=== PATIENT | male | born 2000 | race Caucasian/White ===

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

== ENCOUNTER 2020-02-12 17:27 | Emergency (ER) | payer SELFPAY ==
--- OUTSIDE RECORDS SUMMARY | 2020-02-12 17:29 | XMS REPORT ---
:2000 Author Organization [facility] Address [address] [place] [address] Dr. Bradford [address] [place] [id number] Care Team Providers Name Role Phone Unavailable Unavailable Unavailable Problems This patient has no known problems. Allergies, Adverse Reactions, Alerts This patient has no known allergies or adverse reactions. Medications This patient has no known medications.
--- NOTE | 2020-02-12 17:47 | EDPHYS ---
Physician Documentation [facility] Name: Jeronimo Dotson Age: 19 yrs Sex: Male : 2000 Arrival Date: 02/12/2020 Time: 17:30 Bed 24 Private MD: ED Physician Ashwin Calhoun HPI: 02/11 17:48 This 19 yrs old Male presents to ER via Ambulatory with complaints of kb Congestion. 17:48 The patient or guardian reports nasal congestion. Onset: The symptoms/episode kb began/occurred 2 day(s) ago. Severity of symptoms: At their worst the symptoms were very mild, in the emergency department the symptoms are unchanged. Modifying factors: The symptoms are alleviated by nothing, the symptoms are aggravated by nothing. Associated signs and symptoms: Pertinent positives: rhinorrhea, Pertinent negatives: chest pain, diarrhea, ear ache, fever, nausea, sore throat, vomiting. The patient has not experienced similar symptoms in the past. The patient has not recently seen a physician. Pt states he had a sore throat on Wednesday that caused him to cough, Wednesday developed runny nose. Today has had nasal congestion. Denies fever. States "I think it's just my allergies.". Historical: - Allergies: 17:36 No Known Allergies; aa5 - PMHx: 17:36 None; aa5 - PSHx: 17:36 surgery to right side of neck; aa5 - Immunization history:: Flu vaccine is not up to date. - Social history:: Smoking status: Patient denies any tobacco usage or history of. ROS: 17:47 Constitutional: Negative for fever, chills, and weight loss, Neck: Negative for injury, kb pain, and swelling, Cardiovascular: Negative for chest pain, palpitations, and edema, Respiratory: Negative for shortness of breath, cough, wheezing, and pleuritic chest pain, Abdomen/GI: Negative for abdominal pain, nausea, vomiting, diarrhea, and constipation, MS/Extremity: Negative for injury and deformity, Skin: Negative for injury, rash, and discoloration, Neuro: Negative for headache, weakness, numbness, tingling, and seizure. 17:47 ENT: Positive for sinus congestion. Exam: 17:47 Constitutional: This is a well developed, well nourished patient who is awake, alert, kb and in no acute distress. Head/Face: Normocephalic, atraumatic. ENT: Nares patent. No nasal discharge, no septal abnormalities noted. Tympanic membranes are normal and external auditory canals are clear. Oropharynx with no redness, swelling, or masses, exudates, or evidence of obstruction, uvula midline. Mucous membranes moist. Neck: Trachea midline, no thyromegaly or masses palpated, and no cervical lymphadenopathy. Supple, full range of motion without nuchal rigidity, or vertebral point tenderness. No Meningismus. Chest/axilla: Normal chest wall appearance and motion. Nontender with no deformity. No lesions are appreciated. Cardiovascular: Regular rate and rhythm with a normal S1 and S2. No gallops, murmurs, or rubs. Normal PMI, no JVD. No pulse deficits. Respiratory: Lungs have equal breath sounds bilaterally, clear to auscultation and percussion. No rales, rhonchi or wheezes noted. No increased work of breathing, no retractions or nasal flaring. Abdomen/GI: Soft, non-tender, with normal bowel sounds. No distension or tympany. No guarding or rebound. No evidence of tenderness throughout. Skin: Warm, dry with normal turgor. Normal color with no rashes, no lesions, and no evidence of cellulitis. MS/ Extremity: Pulses equal, no cyanosis. Neurovascular intact. Full, normal range of motion. Neuro: Awake and alert, GCS 15, oriented to person, place, time, and situation. Cranial nerves II-XII grossly intact. Motor strength 5/5 in all extremities. Sensory grossly intact. Cerebellar exam normal. Normal gait. Vital Signs: 17:37 BP 134 / 71; Pulse 105; Resp 18 S; Temp 98.9(O); Pulse Ox 99% on R/A; Weight 115.67 kg aa5 (R); Height 6 ft. 2 in. (187.96 cm) (R); 17:37 Body Mass Index 32.74 (115.67 kg, 187.96 cm) aa5 MDM: 17:39 Patient medically screened. [facility] 17:46 Data reviewed: vital signs, nurses notes. Data interpreted: Pulse oximetry: on room air kb is 99 %. Interpretation: normal. Counseling: I had a detailed discussion with the patient and/or guardian regarding: the historical points, exam findings, and any diagnostic results supporting the discharge/admit diagnosis, the need for outpatient follow up, a family practitioner, to return to the emergency department if symptoms worsen or persist or if there are any questions or concerns that arise at home. Administered Medications: No medications were administered Disposition: 02/12 07:41 Co-signature as Attending Physician, Ashwin Calhoun MD I agree with the assessment and mary plan of care. Disposition: 02/12/20 17:46 Discharged to Home. Impression: Nasal congestion. - Condition is Stable. - Discharge Instructions: Nasal Allergies, Apcf-ck-Csip. - Work release form, Medication Reconciliation Form, Thank You Letter, Antibiotic Education, Prescription Opioid Use form. - Follow up: Emergency Department; When: As needed; Reason: Worsening of condition. Follow up: Private Physician; When: 2 - 3 days; Reason: Recheck today's complaints, Continuance of care, Re-evaluation by your physician. - Notes: Take an antihistamine with decongestant (Claritin D, Zyrtec D, orAllegra D)as directed for symptoms. Signatures: Kaitlin Torres, FABRIC WORKER FITTER-C FABRIC WORKER FITTER-Ashwin Cleaning MD MD cha Calderon, Audri, RN RN aa5 Isidro Garcia RN RN ll1 Corrections: (The following items were deleted from the chart) 02/11 18:01 17:46 02/12/2020 17:46 Discharged to Home. Impression: Nasal congestion. Condition is ll1 Stable. Forms are Medication Reconciliation Form, Thank You Letter, Antibiotic Education, Prescription Opioid Use. Follow up: Emergency Department; When: As needed; Reason: Worsening of condition. Follow up: Private Physician; When: 2 - 3 days; Reason: Recheck today's complaints, Continuance of care, Re-evaluation by your physician. kb
--- NOTE | 2020-02-12 17:47 | ER ---
Nurse's Notes [facility] Name: Jeronimo Dotson Age: 19 yrs Sex: Male : 2000 Arrival Date: 02/12/2020 Time: 17:30 Bed 24 Private MD: Diagnosis: Nasal congestion Presentation: 02/11 17:35 Chief complaint: Patient states: "on Wednesday I started with a sore throat and aa5 congestion". Pt currently denies sore throat, denies cough. Reports nasal congestion. Coronavirus screen: Patient denies a cough. Patient denies shortness of breath or difficulty breathing. Patient denies measured and/or subjective temperature greater than 100.4F prior to today's visit. Patient denies travel on a cruise ship or to a country the [facility] currently lists as an affected area. Patient denies contact with known and/or suspected case of COVID-19. Ebola Screen: Patient negative for fever greater than or equal to 101.5 degrees Fahrenheit, and additional compatible Ebola Virus Disease symptoms. Initial Sepsis Screen: Does the patient meet any 2 criteria? No. Patient's initial sepsis screen is negative. Does the patient have a suspected source of infection? No. Patient's initial sepsis screen is negative. Risk Assessment: Do you want to hurt yourself or someone else? Patient reports no desire to harm self or others. Onset of symptoms was February 2020. 17:35 Method Of Arrival: Ambulatory aa5 17:35 Acuity: OLEKSANDR 4 aa5 Triage Assessment: 17:59 Respiratory: Breath sounds are clear bilaterally. ll1 Historical: - Allergies: 17:36 No Known Allergies; aa5 - PMHx: 17:36 None; aa5 - PSHx: 17:36 surgery to right side of neck; aa5 - Immunization history:: Flu vaccine is not up to date. - Social history:: Smoking status: Patient denies any tobacco usage or history of. Screenin:59 Abuse screen: Denies threats or abuse. Nutritional screening: No deficits noted. ll1 Tuberculosis screening: No symptoms or risk factors identified. Fall Risk None identified. Total Long Fall Scale indicates No Risk (0-24 pts). Assessment: 17:58 General: Appears in no apparent distress. Behavior is calm, cooperative. Pain: Denies ll1 pain. Neuro: No deficits noted. Cardiovascular: No deficits noted. Respiratory: No deficits noted. GI: No deficits noted. EENT: Reports nasal congestion. 17:59 Cardiovascular: Heart tones S1 S2 Capillary refill < 3 seconds Clubbing of nail beds is ll1 absent JVD is absent Patient's skin is warm and dry. Respiratory: Airway is patent Trachea midline Respiratory effort is even, unlabored, Respiratory pattern is regular, symmetrical, Breath sounds are clear bilaterally. Vital Signs: 17:37 BP 134 / 71; Pulse 105; Resp 18 S; Temp 98.9(O); Pulse Ox 99% on R/A; Weight 115.67 kg aa5 (R); Height 6 ft. 2 in. (187.96 cm) (R); 17:37 Body Mass Index 32.74 (115.67 kg, 187.96 cm) aa5 ED Course: 17:30 Patient arrived in ED. mr 17:30 [facility]aitlin Torres [facility]C [facility] kb 17:30 Ashwin Calhoun MD is Attending Physician. kb 17:36 Triage completed. aa5 17:36 Arm band placed on. aa5 17:53 Isidro Garcia, RN is Primary Nurse. ll1 17:58 No provider procedures requiring assistance completed. Patient did not have IV access ll1 during this emergency room visit. 18:00 Patient has correct armband on for positive identification. Bed in low position. Call ll1 light in reach. Side rails up X 1. Administered Medications: No medications were administered Outcome: 17:46 Discharge ordered by . kb 18:00 Discharged to home ambulatory. ll1 18:00 Condition: stable 18:00 Discharge instructions given to patient, Instructed on discharge instructions, follow up and referral plans. Demonstrated understanding of instructions, follow-up care. 18:01 Patient left the ED. ll1 Signatures: Kaitlin Torres FNP-C FNP-Ckb Trupti LrDian RN RN aa5 Isidro Garcia, EDSON RN ll1
[2020-02-12 18:28] VITALS: BP 134/71; TEMP 98.9; O2SAT 99
== END 2020-02-12 18:01 | disposition home or self-care (01) ==
LOC: ER 17:27
DX: R09.81 Nasal congestion (principal)
CPT/HCPCS: 99281

== ENCOUNTER 2022-09-28 15:32 | Emergency (ER) | payer SELFPAY ==
--- OUTSIDE RECORDS SUMMARY | 2022-09-28 16:39 | XMS REPORT | Continuity of Care Document ---
:2000 Author Organization [facility] t Address [address] [place] [address] [address]. [address] [place] [address] Care Team Providers Name Role Phone MARY WONG Attending Clinician Unavailable Problems This patient has no known problems. Allergies, Adverse Reactions, Alerts Allergy Allergy Status Severity Reaction(s) Onset Inactive Treating Comm ents Source Name Type Date Date Clinician NO KNOWN Drug Active [facility] ALLERGIE [facility] Medications This patient has no known medications. Procedures This patient has no known procedures. Encounters Start End Encounter Admission Attending Care Care Encounter Source Date/Time Date/Time Type Type Clinicians Facility Department ID 2019-11-12 2019-11-12 Emergency X CELINA WONG ERT [id number] [facility] 06:36:27 07:31:00 MARY [facility] Results This patient has no known results.
[2022-09-28 17:24] LABS: SARS-COV-2 RT PCR NEGATIVE (NEGATIVE)
[2022-09-28] MEDS ORDERED: PROMETHAZINE 25 MG TABLET ONE (17:58)
[2022-09-28] MEDS ORDERED: KETOROLAC 30 MG/ML INJ ONE (17:58)
--- NOTE | 2022-09-28 18:32 | ER ---
Nurse's Notes [facility] Name: Jeronimo Dotson Age: 21 yrs Sex: Male : 2000 Arrival Date: 09/28/2022 Time: 15:34 Bed DIS5 Private MD: Diagnosis: Viral infection, unspecified Presentation: 09/28 16:11 Chief complaint: Patient states: was exposed to flu on Wednesday and yesterday I felt iw like i was gonna throw up and today I have a Headache. Coronavirus screen: Client presents with at least one sign or symptom that may indicate coronavirus-19. Ebola Screen: Patient negative for fever greater than or equal to 101.5 degrees Fahrenheit, and additional compatible Ebola Virus Disease symptoms Patient denies exposure to infectious person. Patient denies travel to an Ebola-affected area in the 21 days before illness onset. No symptoms or risks identified at this time. Onset of symptoms was September 27, 2022. 16:11 Method Of Arrival: Ambulatory iw 16:11 Acuity: OLEKSANDR 4 iw Triage Assessment: 16:19 General: Appears in no apparent distress. Behavior is calm, cooperative, appropriate iw for age. Pain: Denies pain. Historical: - Allergies: 16:12 No Known Allergies; iw - Home Meds: 16:12 None [Active]; iw - PMHx: 16:12 None; iw - Immunization history:: Client reports having NOT received the Covid vaccine. - Social history:: Smoking status: Patient denies any tobacco usage or history of. Vital Signs: 16:42 BP 116 / 98; Pulse 89; Resp 18; Temp 98.3; Pulse Ox 97% on R/A; iw 18:07 BP 120 / 71; Pulse 79; Resp 16; Temp 97.9; Pulse Ox 100% on R/A; iw ED Course: 15:34 Patient arrived in ED. as 15:35 [facility] snw 15:35 Wai Butts MD is Attending Physician. snw 16:12 Triage completed. iw 16:12 Arm band placed on. iw 17:54 Candelaria Macario, RN is Primary Nurse. iw Administered Medications: 18:02 Drug: Ketorolac 30 mg Route: IM; Site: left deltoid; iw 18:02 Drug: Promethazine 25 mg Route: PO; iw Outcome: 18:32 Discharge ordered by MD. camarena 18:42 Patient left the ED. jh5 Signatures: Ena Garcia, [employer] ARC-Carmen Cormier Irene, RN ESDON Mayda Saenz RN RN 5 Corrections: (The following items were deleted from the chart) 16:43 16:42 BP 141 / 98; Pulse 89bpm; Resp 18bpm; Pulse Ox 97% RA; Temp 98.3F; iw iw 18:15 18:07 Pulse 79bpm; Resp 16bpm; Pulse Ox 100% RA; Temp 97.9F; iw iw
--- NOTE | 2022-09-28 18:32 | EDPHYS ---
Physician Documentation [facility] Name: Jeronimo Dotson Age: 21 yrs Sex: Male : 2000 Arrival Date: 09/28/2022 Time: 15:34 Bed DIS5 Private MD: ED Physician Wai Butts HPI: 09/28 16:41 This 21 yrs old Male presents to ER via Ambulatory with complaints of nausea, headache. snw 16:41 The patient complains of pain to the top of head and forehead. The patient describes snw the headache as pounding. Onset: The symptoms/episode began/occurred acutely. Associated signs and symptoms: Pertinent positives: nausea. Severity of symptoms: At its worst the pain was moderate, in the emergency department the pain is unchanged. Headache History: Denies prior headaches. The patient has not experienced similar symptoms in the past. The patient has not recently seen a physician. Historical: - Allergies: 16:12 No Known Allergies; iw - Home Meds: 16:12 None [Active]; iw - PMHx: 16:12 None; iw - Immunization history:: Client reports having NOT received the Covid vaccine. - Social history:: Smoking status: Patient denies any tobacco usage or history of. ROS: 16:42 Eyes: Negative for injury, pain, redness, and discharge, ENT: Negative for injury, snw pain, and discharge, Neck: Negative for injury, pain, and swelling, Cardiovascular: Negative for chest pain, palpitations, and edema, Respiratory: Negative for shortness of breath, cough, wheezing, and pleuritic chest pain. 16:42 Back: Negative for injury and pain, : Negative for injury, bleeding, discharge, and swelling, MS/Extremity: Negative for injury and deformity, Skin: Negative for injury, rash, and discoloration. 16:42 Constitutional: Positive for body aches. 16:42 Abdomen/GI: Positive for nausea. 16:42 Neuro: Positive for headache. Exam: 16:42 Head/Face: Normocephalic, atraumatic. Eyes: Pupils equal round and reactive to light, snw extra-ocular motions intact. Lids and lashes normal. Conjunctiva and sclera are non-icteric and not injected. Cornea within normal limits. Periorbital areas with no swelling, redness, or edema. ENT: Nares patent. No nasal discharge, no septal abnormalities noted. Tympanic membranes are normal and external auditory canals are clear. Oropharynx with mild redness, no swelling, or masses, exudates, or evidence of obstruction, uvula midline. Mucous membranes moist. Neck: Trachea midline, no thyromegaly or masses palpated, and no cervical lymphadenopathy. Supple, full range of motion without nuchal rigidity, or vertebral point tenderness. No Meningismus. Chest/axilla: Normal chest wall appearance and motion. Nontender with no deformity. No lesions are appreciated. Cardiovascular: Regular rate and rhythm with a normal S1 and S2. No gallops, murmurs, or rubs. Normal PMI, no JVD. No pulse deficits. Respiratory: Lungs have equal breath sounds bilaterally, clear to auscultation and percussion. No rales, rhonchi or wheezes noted. No increased work of breathing, no retractions or nasal flaring. Abdomen/GI: Soft, non-tender, with normal bowel sounds. No distension or tympany. No guarding or rebound. No evidence of tenderness throughout. Back: No spinal tenderness. No costovertebral tenderness. Full range of motion. Skin: Warm, dry with normal turgor. Normal color with no rashes, no lesions, and no evidence of cellulitis. MS/ Extremity: Pulses equal, no cyanosis. Neurovascular intact. Full, normal range of motion. Neuro: Awake and alert, GCS 15, oriented to person, place, time, and situation. Cranial nerves II-XII grossly intact. Motor strength 5/5 in all extremities. Sensory grossly intact. Cerebellar exam normal. Normal gait. Psych: Awake, alert, with orientation to person, place and time. Behavior, mood, and affect are within normal limits. 16:42 Constitutional: The patient appears alert, awake, uncomfortable. Vital Signs: 16:42 BP 116 / 98; Pulse 89; Resp 18; Temp 98.3; Pulse Ox 97% on R/A; iw 18:07 BP 120 / 71; Pulse 79; Resp 16; Temp 97.9; Pulse Ox 100% on R/A; iw MDM: 16:35 Patient medically screened. snw 18:32 Data reviewed: vital signs, nurses notes. Data interpreted: Pulse oximetry: on room air snw is 100 %. Interpretation: normal. Counseling: I had a detailed discussion with the patient and/or guardian regarding: the historical points, exam findings, and any diagnostic results supporting the discharge/admit diagnosis, lab results, the need for outpatient follow up, to return to the emergency department if symptoms worsen or persist or if there are any questions or concerns that arise at home. Special discussion: Based on the history and exam findings, there is no indication for further emergent testing or inpatient evaluation. I discussed with the patient/guardian the need to see the primary care provider for further evaluation of the symptoms. 09/28 16:20 Order name: Strep; Complete Time: 17:03 snw 09/28 16:20 Order name: COVID-19/FLU A+B/RSV; Complete Time: 17:27 snw 09/28 17:05 Order name: Throat Culture EDMS 09/28 17:32 Order name: Recheck VS; Complete Time: 18:15 snw Administered Medications: 18:02 Drug: Ketorolac 30 mg Route: IM; Site: left deltoid; iw 18:02 Drug: Promethazine 25 mg Route: PO; iw Disposition: 16:43 Co-signature as Attending Physician, Wai Butts MD I agree with the assessment and rt plan of care. Disposition Summary: 09/28/22 18:32 Discharge Ordered Location: Home snw Condition: Stable snw Diagnosis - Viral infection, unspecified snw Followup: snw - With: Emergency Department - When: As needed - Reason: Worsening of condition Followup: snw - With: Private Physician - When: 2 - 3 days - Reason: Recheck today's complaints, Continuance of care, Re-evaluation by your physician Discharge Instructions: - Discharge Summary Sheet snw - Fever, Adult snw - Muscle Pain, Adult snw - Viral Respiratory Infection snw - Rehydration, Adult snw Forms: - Medication Reconciliation Form snw - Thank You Letter snw - Antibiotic Education snw - Prescription Opioid Use snw - Work release form snw Prescriptions: - orphenadrine citrate 100 mg Oral Tablet Sustained Release - take 1 tablet by ORAL route 2 times per day As needed; 20 tablet; Refills: 0, snw Product Selection Permitted - promethazine 25 mg Oral Tablet - take 1 tablet by ORAL route every 6 hours As needed; 20 tablet; Refills: 0, snw Product Selection Permitted Signatures: Dispatcher [employer] EDMS Ena Garcia, COUNTER WAITER-C COUNTER WAITER-Csnw Candelaria Macario, RN RN iw Wai Butts MD MD rt
[2022-09-28 19:15] VITALS: BP 120/71; TEMP 97.9; O2SAT 100
== END 2022-09-28 18:42 | disposition home or self-care (01) ==
LOC: ER 15:32
DX: B34.9 Viral infection, unspecified (principal); Z20.822 Contact with and (suspected) exposure to COVID-19
CPT/HCPCS: 0241U; 87070; 87081; 96372; 99283; Q0169

== ENCOUNTER 2024-08-08 08:57 | Emergency (ER) | payer SELFPAY ==
--- OUTSIDE RECORDS SUMMARY | 2024-08-08 09:00 | XMS REPORT | Continuity of Care Document ---
Author Name Unknown Address [address] [place] [address] [facility] thconnect Address [address] [place] [address] Care Team Providers Care Casing Cooker Name Role Phone Pcp, Patient Does Not Have A Primary Care Physic jason OSMANY ANTUNEZ Attending Clinician Unavailable Osmany Antunez MD Attending Clinician MARY WONG Attending Clinician Unavailab le Allergies, Adverse Reactions, Alerts Allergy Name Allergy Type Status Severity Reaction(s) Onset Date Inactive Date Treating Clinician Comments Source NO KNOWN ALLERGIE S Drug Class Active [facility] Social History Social Habit Start Date Stop Date Quantity Comments Source Sexual orientation U [facility] Sex Assigned At 2000 00:00:00 2000 00:00:00 [facility] Smoking Status Start Date Stop Date Source Tobacco smoking consumption unknown [facility] Medications Ordered Medication Name Filled Medication Name Start Date Stop Date Current Medication? Ordering Clinician Indication Dosage Frequency Signature (SIG) Comments Components Source sod chlor-bicar b-squeez bottle (NEILMED SINUS RINSE COMPLETE) pkdv 2018-11 00:00: 00 Yes [id number] 1{bottl e} Use 1 Bottle in each nostril 2 (two) times daily. Use in hot shower [address] [facility] promethazin e-codeine 6.25-10 mg/5 mL syrup 2018-11 00:00: 00 Yes [id number] 5mL Take 5 mL by mouth 4 (four) times daily as needed for Cough. [facility] Vital Signs Vital Name Observation Time Observation Value Comments Annabelle aden Systolic blood pressure 2023-09-17 13:39:00 147 mm[Hg] [facility] Diastolic blood pressure 2023-09-17 13:39:00 88 mm[Hg] [facility] Heart rate 2023-09-17 13:39:00 84 [facility] temperature 2023-09-17 13:39:[address] [facility] Respiratory rate 2023-09-17 13:39:00 14 /min [facility] Body height 2023-09-17 13:39:00 190.5 cm [facility] Body weight 2023-09-17 13:39:00 133.811 kg [facility] BMI 2023-09-17 13:39:00 36.87 kg/m2 [facility] Oxygen saturation in Arterial blood by Pulse oximetry 2023-09-17 13:39:00 100 /min [facility] Procedures Procedure Date / Time Performed Performing Clinicia n Source CONSENT/REFUSAL FOR DIAGNOSIS AND TREATMENT 2023-09-17 13:36:27 Doctor Unassigned, [facility] [place] [facility] Encounters Start Date/Time End Date/Time Encounter Type Admission Type Attending Clinicians Care Facility Care Department Encounter ID Source 2023-09-17 07:41:00 2023-09-17 08:27:00 Emergency X OSMANY ANTUNEZ [facility] [place] [id number] [facility] 2023-09-17 07:41:00 2023-09-17 08:27:00 Emergency Osmany Antunez [facility] [id number] [facility] 2019-11-12 06:36:27 2019-11-12 07:31:00 Emergency X MARY WONG [facility] [id number] [facility]
[2024-08-08 10:08] LABS: SARS-CoV-2 Antigen CONTROL BLUE LINE VIS/BG OK; SARS-CoV-2 Antigen Rapid Res Negative (Negative)
--- NOTE | 2024-08-08 12:57 | ER ---
Nurse's Notes [facility] Name: Jeronimo Dotson Age: 23 yrs Sex: Male : 2000 Arrival Date: 08/08/2024 Time: 08:57 Bed 11 Private MD: Diagnosis: Acute upper respiratory infection, unspecified;Cough Presentation: 08/08 09:19 Chief complaint: Patient states: nasal congestion, cough, body aches x 2 days. jl7 Coronavirus screen: Client presents with at least one sign or symptom that may indicate coronavirus-19. Ebola Screen: No symptoms or risks identified at this time. Initial Sepsis Screen: Does the patient meet any 2 criteria? No. Patient's initial sepsis screen is negative. Does the patient have a suspected source of infection? No. Patient's initial sepsis screen is negative. Risk Assessment: Do you want to hurt yourself or someone else? Patient reports no desire to harm self or others. Onset of symptoms was August 07, 2024. 09:19 Method Of Arrival: Ambulatory [facility] 09:19 Acuity: OLEKSANDR 4 jl7 Triage Assessment: 09:20 General: Appears in no apparent distress. uncomfortable, Behavior is calm, cooperative, jl7 appropriate for age. Pain: Complains of pain in headache Pain currently is 4 out of 10 on a pain scale. EENT: Throat is clear. Neuro: No deficits noted. Historical: - Allergies: 09:20 No Known Allergies; jl7 - Home Meds: 09:20 None [Active]; jl7 - PMHx: 09:20 None; jl7 - PSHx: 09:20 None; jl7 - Immunization history:: Adult Immunizations unknown. - Infectious Disease History:: Denies. - Social history:: Smoking status: Patient denies any tobacco usage or history of. Screenin:24 [facility] ED Fall Risk Assessment (Adult) History of falling in the last 3 months, iw including since admission No falls in past 3 months (0 pts) Confusion or Disorientation No (0 pts) Intoxicated or Sedated No (0 pts) Impaired Gait No (0 pts) Mobility Assist Device Used No (0 pt) Altered Elimination No (0 pt) Score/Fall Risk Level 0 - 2 = Low Risk Oriented to surroundings, Maintained a safe environment. Abuse screen: Denies threats or abuse. Denies injuries from another. Nutritional screening: No deficits noted. Tuberculosis screening: No symptoms or risk factors identified. Assessment: 10:00 General: Appears in no apparent distress. Behavior is calm, cooperative. Neuro: Level iw of Consciousness is awake, alert, obeys commands, Oriented to person, place, time, situation, Moves all extremities. Full function Cardiovascular: Patient's skin is warm and dry. Respiratory: Respiratory effort is even, unlabored, Respiratory pattern is regular. GI: Abdomen is non-distended. Derm: Skin is intact, is healthy with good turgor. Musculoskeletal: Range of motion: intact in all extremities. Vital Signs: 09:19 BP 138 / 85; Pulse 79; Resp 17; Temp 98.3; Pulse Ox 99% ; Weight 129.27 kg; Height 6 jl7 ft. 3 in. ; Pain 4/10; 13:24 BP 114 / 68; Pulse 81; Resp 15; Temp 97.9; Pulse Ox 100% ; jl7 09:19 Body Mass Index 35.62 (129.27 kg, 190.5 cm) jl7 09:19 Pain Scale: Adult jl7 ED Course: 08:58 Patient arrived in ED. im 08:59 Ashwin Calhoun MD is Attending Physician. [facility] 09:20 Triage completed. jl7 09:20 Arm band placed on right wrist. Patient placed in waiting room, Patient notified of jl7 wait time. 12:59 Candelaria Macario, RN is Primary Nurse. iw 13:25 No provider procedures requiring assistance completed. Patient did not have IV access jl7 during this emergency room visit. Administered Medications: 13:15 Drug: AZITHromycin PO 500 mg PO once Route: PO; jl7 13:25 Follow up: Response: No adverse reaction jl7 13:15 Drug: Dexamethasone IM 10 mg IM once Route: IM; Site: right deltoid; jl7 13:25 Follow up: Response: No adverse reaction jl7 Medication: 13:24 VIS not applicable for this client. jl7 Outcome: 12:57 Discharge ordered by . mary 13:25 Discharged to home ambulatory, jl7 13:25 Condition: stable 13:25 Discharge instructions given to patient, Instructed on discharge instructions, follow up and referral plans. medication usage, Demonstrated understanding of instructions, follow-up care, medications, Prescriptions given X 4, 13:26 Patient left the ED. jl7 Signatures: Ashwin Calhoun MD MD cha Williams, Irene, RN RN Dawna Powell RN RN jl7 Suzanne Tijerina
--- NOTE | 2024-08-08 12:57 | EDPHYS ---
Physician Documentation [facility] Name: Jeronimo Dotson Age: 23 yrs Sex: Male : 2000 Arrival Date: 08/08/2024 Time: 08:57 Bed 11 Private MD: ED Physician Ashwin Calhoun HPI: 08/08 12:48 This 23 yrs old Male presents to ER via Ambulatory with complaints of Flu mary Symptoms. 12:48 The patient or guardian reports cough, difficulty breathing, flu symptoms, arthralgias, mary low-grade fever, myalgias. Onset: The symptoms/episode began/occurred 2 day(s) ago. Modifying factors: The symptoms are alleviated by nothing. Associated signs and symptoms: The patient has no apparent associated signs or symptoms. Severity of symptoms: At their worst the symptoms were mild in the emergency department the symptoms are unchanged. The patient has not experienced similar symptoms in the past. Historical: - Allergies: 09:20 No Known Allergies; jl7 - Home Meds: 09:20 None [Active]; jl7 - PMHx: 09:20 None; jl7 - PSHx: 09:20 None; jl7 - Immunization history:: Adult Immunizations unknown. - Infectious Disease History:: Denies. - Social history:: Smoking status: Patient denies any tobacco usage or history of. ROS: 12:49 Constitutional: Negative for fever, chills, and weight loss, Eyes: Negative for injury, mary pain, redness, and discharge, ENT: Negative for injury, pain, and discharge, Neck: Negative for injury, pain, and swelling, Cardiovascular: Negative for chest pain, palpitations, and edema, Abdomen/GI: Negative for abdominal pain, nausea, vomiting, diarrhea, and constipation, Back: Negative for injury and pain, : Negative for injury, bleeding, discharge, and swelling, MS/Extremity: Negative for injury and deformity, Skin: Negative for injury, rash, and discoloration, Neuro: Negative for headache, weakness, numbness, tingling, and seizure, Psych: Negative for depression, anxiety, suicide ideation, homicidal ideation, and hallucinations, Allergy/Immunology: Negative for hives, rash, and allergies, Endocrine: Negative for neck swelling, polydipsia, polyuria, polyphagia, and marked weight changes, Hematologic/Lymphatic: Negative for swollen nodes, abnormal bleeding, and unusual bruising, 12:49 Respiratory: Positive for cough, with no reported sputum, Exam: 12:49 Constitutional: This is a well developed, well nourished patient who is awake, alert, mary and in no acute distress. Head/Face: Normocephalic, atraumatic. Eyes: Pupils equal round and reactive to light, extra-ocular motions intact. Lids and lashes normal. Conjunctiva and sclera are non-icteric and not injected. Cornea within normal limits. Periorbital areas with no swelling, redness, or edema. ENT: Nares patent. No nasal discharge, no septal abnormalities noted. Tympanic membranes are normal and external auditory canals are clear. Oropharynx with no redness, swelling, or masses, exudates, or evidence of obstruction, uvula midline. Mucous membranes moist. Neck: Trachea midline, no thyromegaly or masses palpated, and no cervical lymphadenopathy. Supple, full range of motion without nuchal rigidity, or vertebral point tenderness. No Meningismus. Chest/axilla: Normal chest wall appearance and motion. Nontender with no deformity. No lesions are appreciated. Cardiovascular: Regular rate and rhythm with a normal S1 and S2. No gallops, murmurs, or rubs. Normal PMI, no JVD. No pulse deficits. Respiratory: Lungs have equal breath sounds bilaterally, clear to auscultation and percussion. No rales, rhonchi or wheezes noted. No increased work of breathing, no retractions or nasal flaring. Abdomen/GI: Soft, non-tender, with normal bowel sounds. No distension or tympany. No guarding or rebound. No evidence of tenderness throughout. Back: No spinal tenderness. No costovertebral tenderness. Full range of motion. Male : Normal genitalia with no discharge or lesions. Skin: Warm, dry with normal turgor. Normal color with no rashes, no lesions, and no evidence of cellulitis. MS/ Extremity: Pulses equal, no cyanosis. Neurovascular intact. Full, normal range of motion. Neuro: Awake and alert, GCS 15, oriented to person, place, time, and situation. Cranial nerves II-XII grossly intact. Motor strength 5/5 in all extremities. Sensory grossly intact. Cerebellar exam normal. Normal gait. Psych: Awake, alert, with orientation to person, place and time. Behavior, mood, and affect are within normal limits. Vital Signs: 09:19 BP 138 / 85; Pulse 79; Resp 17; Temp 98.3; Pulse Ox 99% ; Weight 129.27 kg; Height 6 7 ft. 3 in. ; Pain 4/10; 13:24 BP 114 / 68; Pulse 81; Resp 15; Temp 97.9; Pulse Ox 100% ; jl7 09:19 Body Mass Index 35.62 (129.27 kg, 190.5 cm) [facility] 09:19 Pain Scale: Adult jl7 MDM: 08:59 Patient medically screened. [facility] 12:53 Differential diagnosis: obstructed airway, tracheal injury, bronchitis, flu, URI. mary Antibiotic administration: The patient is discharged and will get outpatient antibiotics, Zithromax. Differential Diagnosis: Obstructed Airway Bronchitis Influenza Upper Respiratory Infection Pharyngitis Viral Syndrome Pneumonia. Data reviewed: vital signs, nurses notes, lab test result(s), Flu: positive. Consideration of Admission/Observation Escalation of care including admission/observation considered. I considered the following discharge prescriptions or medication management in the emergency department Medications were administered in the Emergency Department. See MAR. Test considered but Not performed: X-ray: NO CXR. Historians other than the Patient: PT WELL INFORMED. Counseling: I had a detailed discussion with the patient and/or guardian regarding the historical points, exam findings, and any diagnostic results supporting the discharge/admit diagnosis, lab results, the need for outpatient follow up, for definitive care, a family practitioner. 08/08 09:00 Order name: Flu; Complete Time: 12:36 [facility] 08/08 09:00 Order name: SARS RAPID; Complete Time: 12:36 [facility] 08/08 09:00 Order name: Strep [facility] 08/08 10:10 Order name: Throat Culture EDMS Administered Medications: 13:15 Drug: AZITHromycin PO 500 mg PO once Route: PO; jl7 13:25 Follow up: Response: No adverse reaction jl7 13:15 Drug: Dexamethasone IM 10 mg IM once Route: IM; Site: right deltoid; jl7 13:25 Follow up: Response: No adverse reaction jl7 Disposition Summary: 08/08/24 12:57 Discharge Ordered Notes: Location: Home mary Problem: new mary Symptoms: have improved mary Condition: Stable mary Diagnosis - Acute upper respiratory infection, unspecified mary - Cough mary Followup: mary - With: Private Physician - When: 2 - 3 days - Reason: Recheck today's complaints, Continuance of care, Re-evaluation by your physician Discharge Instructions: - Discharge Summary Sheet mary - Upper Respiratory Infection, Adult mary - Cool Mist Vaporizer mary - Upper Respiratory Infection, Adult, [id number]-[id number] mary - Cough, Adult mary Forms: - Medication Reconciliation Form mary - Antibiotic Education mary - Prescription Opioid Use mary - Patient Portal Instructions [facility] - Leadership Thank You Letter mary - Work release form jl7 Prescriptions: - Nela-D 12 Hour 60-120 mg Oral Tablet Sustained Release 12 hr - take 1 tablet ORAL route every 12 hours As needed; 20 tablet; Refills: 0, [facility] Product Selection Permitted - Tessalon Perles 100 mg Oral capsule - take 2 capsule ORAL route every 8 hours As needed; 30 capsule; Refills: 0, [facility] Product Selection Permitted - Medrol (Alan) 4 mg Oral Tablets, Dose Pack - take 1 tablet ORAL route as directed - follow package instructions; 1 packet; [facility] Refills: 0, Product Selection Permitted - Zithromax 500 mg Oral Tablet - take 1 tablet ORAL route once daily for 5 days; 5 tablet; Refills: 0, Product [facility] Selection Permitted Signatures: Dispatcher [employer] Ashwin Rosa MD MD cha Leal, Jahala RN RN jl7
[2024-08-08] MEDS ORDERED: dexAMETHasone 10 MG/ML VIAL ONE (13:03)
[2024-08-08] MEDS ORDERED: AZITHROMYCIN 250 MG TAB ONE (13:03)
[2024-08-08 13:32] VITALS: BP 114/68; TEMP 97.9; O2SAT 100
== END 2024-08-08 13:26 | disposition home or self-care (01) ==
LOC: ER 08:57
DX: J06.9 Acute upper respiratory infection, unspecified (principal); Z11.52 Encounter for screening for COVID-19
CPT/HCPCS: 36415; 87070; 87081; 87804; 87811; 96372; 99284; J1100

== ENCOUNTER 2025-03-15 08:20 | Emergency (ER) | payer SELFPAY ==
--- OUTSIDE RECORDS SUMMARY | 2025-03-15 08:22 | XMS REPORT | Continuity of Care Document ---
Author Name Unknown Address [address] [facility] [address] [facility] [address] [place] [address] Organization [facility] Address [address] [facility] [address] [place] [address] Care Team Providers Care Baker Test Name Role Phone Pcp, Patient Does Not Have A Primary Care Physic jason OSMANY ANTUNEZ Attending Clinician Unavailable Osmany Antunez MD Attending Clinician MARY WONG Attending Clinician Unavailab le Allergies, Adverse Reactions, Alerts Allergy Name Allergy Type Status Severity Reaction(s) Onset Date Inactive Date Treating Clinician Comments Source NO KNOWN ALLERGIE S Drug Class Active [facility] Social History Social Habit Start Date Stop Date Quantity Comments Source Sexual orientation U [facility] Sex Assigned At 2000 00:00:00 2000 00:00:00 [facility] Smoking Status Start Date Stop Date Source Tobacco smoking consumption unknown [facility] Medications Ordered Medication Name Filled Medication Name Start Date Stop Date Current Medication? Ordering Clinician Indication Dosage Frequency Signature (SIG) Comments Components Source sod chlor-bicar b-squeez bottle (NEILMED SINUS RINSE COMPLETE) pkdv 2018-11 00:00: 00 Yes [id number] 1{bottl e} Use 1 Bottle in each nostril 2 (two) times daily. Use in hot shower 1 hour before bedtime [facility] promethazin e-codeine 6.25-10 mg/5 mL syrup 2018-11 00:00: 00 Yes [id number] 5mL Take 5 mL by mouth 4 (four) times daily as needed for Cough. [facility] Vital Signs Vital Name Observation Time Observation Value Comments Annabelle aden Systolic blood pressure 2023-09-17 13:39:00 147 mm[Hg] [facility] Diastolic blood pressure 2023-09-17 13:39:00 88 mm[Hg] [facility] Heart rate 2023-09-17 13:39:00 84 /min [facility] temperature 2023-09-17 13:39:00 36.39 Grisel [facility] Respiratory rate 2023-09-17 13:39:00 14 /min [facility] Body height 2023-09-17 13:39:00 190.5 cm [facility] Body weight 2023-09-17 13:39:00 133.811 kg [facility] BMI 2023-09-17 13:39:00 36.87 kg/m2 [facility] Oxygen saturation in Arterial blood by Pulse oximetry 2023-09-17 13:39:00 100 /min [facility] Procedures Procedure Date / Time Performed Performing Clinicia n Source CONSENT/REFUSAL FOR DIAGNOSIS AND TREATMENT 2023-09-17 13:36:27 Doctor Unassigned, [place] [facility] Encounters Start Date/Time End Date/Time Encounter Type Admission Type Attending Clinicians Care Facility Care Department Encounter ID Source 2023-09-17 07:41:00 2023-09-17 08:27:00 Emergency X OSMANY ANTUNEZ [facility] ERT [id number] [facility] 2023-09-17 07:41:00 2023-09-17 08:27:00 Emergency Osmany Antunez [facility] [id number] [facility] 2019-11-12 06:36:27 2019-11-12 07:31:00 Emergency X MARY WONG [facility] ERT [id number] [facility]
[2025-03-15 09:12] LABS: SARS-CoV-2 Antigen Rapid Res Negative (Negative)
--- NOTE | 2025-03-15 09:35 | EDPHYS ---
Physician Documentation [facility] Name: Jeronimo Dotson Age: 24 yrs Sex: Male : 2000 Arrival Date: 03/15/2025 Time: 08:20 Bed 12 Private MD: ED Physician Darrel Lopez HPI: 03/15 08:58 This 24 yrs old Male presents to ER via Ambulatory with complaints of Flu Symptoms. ms3 08:58 24-year-old male with no past medical history presents to the emergency department for ms3 nasal congestion began on Wednesday and became worse on Wednesday. Patient denies nausea, vomiting, fevers, chills. Patient states he is taken Mucinex nasal spray without relief. He denies any alleviating or inciting factors.. Historical: - Allergies: 08:47 No Known Allergies; ll1 - Home Meds: 08:47 None [Active]; ll1 - PMHx: 08:47 None; ll1 - PSHx: 08:47 None; ll1 - Immunization history:: Adult Immunizations up to date. - Infectious Disease History:: Denies. - Social history:: Smoking status: Reported history of juuling and/or vaping. ROS: 08:58 Constitutional: Negative for fever, and chills. Cardiovascular: Negative for chest ms3 pain, and palpitations. Respiratory: Negative for shortness of breath, cough, wheezing, and pleuritic chest pain, Abdomen/GI: Negative for abdominal pain, nausea, vomiting, diarrhea, and constipation, 08:58 ENT: Positive for nasal discharge, sinus congestion, Exam: 08:58 Constitutional: This is a well developed, well nourished patient who is awake, alert, ms3 and in no acute distress. Cardiovascular: Regular rate and rhythm with a normal S1 and S2. No gallops, murmurs, or rubs. Normal PMI, no JVD. No pulse deficits. Respiratory: Lungs have equal breath sounds bilaterally, clear to auscultation and percussion. No rales, rhonchi or wheezes noted. No increased work of breathing, no retractions or nasal flaring. Abdomen/GI: Soft, non-tender, with normal bowel sounds. No distension or tympany. No guarding or rebound. No evidence of tenderness throughout. Skin: Warm, dry with normal turgor. Normal color with no rashes, no lesions, and no evidence of cellulitis. MS/ Extremity: Pulses equal, no cyanosis. Neurovascular intact. Full, normal range of motion. Vital Signs: 08:47 BP 138 / 78; Pulse 86; Resp 17; Temp 99.1; Pulse Ox 100% on R/A; Weight 129.27 kg; ll1 Height 6 ft. 3 in. ; Pain 0/10; 09:44 BP 131 / 70; Pulse 60; Resp 17; Pulse Ox 100% ; Pain 0/10; ll1 08:47 Body Mass Index 35.62 (129.27 kg, 190.5 cm) ll1 08:47 Pain Scale: Adult ll1 09:44 Pain Scale: Adult ll1 MDM: 08:58 Differential diagnosis: bronchitis, URI, COVID. ms3 09:21 Medical Screening Exam initiated ms3 09:36 Data reviewed: vital signs, nurses notes, lab test result(s), and as a result, I will ms3 discharge patient. Counseling: I had a detailed discussion with the patient and/or guardian regarding the historical points, exam findings, and any diagnostic results supporting the discharge/admit diagnosis, lab results, the need for outpatient follow up, to return to the emergency department if symptoms worsen or persist or if there are any questions or concerns that arise at home. Special discussion: I have referred the patient to see his PCP for further evaluation of high blood pressure. I discussed with the patient/guardian in detail that at this point there is no indication for admission to the hospital. It is understood, however, that if the symptoms persist or worsen the patient needs to return immediately for re-evaluation. ED course: Discussed negative COVID results with patient. Patient to follow-up with primary care physician in 2 to 3 days. All questions were answered. Return precautions discussed include worsening symptoms, or any other concerns. On reevaluation patient is alert and orient x 4, no apparent distress, nontoxic-appearing, speaking full sentences. 03/15 08:24 Order name: GOSIA RICHARDS; Complete Time: 09:29 ms3 Administered Medications: No medications were administered Disposition Summary: 03/15/25 09:35 Discharge Ordered Notes: Location: Home ms3 Condition: Stable ms3 Diagnosis - Nasal congestion ms3 - Elevated blood-pressure reading, without diagnosis of hypertension ms3 Followup: ms3 - With: Philippe Garrido DO - When: 2 - 3 days - Reason: Recheck today's complaints Discharge Instructions: - Discharge Summary Sheet ms3 - Upper Respiratory Infection, Adult, [id number] ms3 - Hypertension, Adult, [id number] ms3 Forms: - Work release form ll1 - Medication Reconciliation Form ms3 - Antibiotic Education ms3 - Prescription Opioid Use ms3 - Patient Portal Instructions ms3 - Leadership Thank You Letter ms3 Signatures: Dispatcher [employer] Isidro Tol[place], RN RN ll1 Darrel Lopez DO DO ms3
--- NOTE | 2025-03-15 09:35 | ER ---
Nurse's Notes [facility] Name: Jeronimo Dotson Age: 24 yrs Sex: Male : 2000 Arrival Date: 03/15/2025 Time: 08:20 Bed 12 Private MD: Diagnosis: Nasal congestion;Elevated blood-pressure reading, without diagnosis of hypertension Presentation: 03/15 08:47 Chief complaint: Patient states: Cough, congestion since Wednesday night. Brother was also ll1 sick. Coronavirus screen: Client denies travel out of the [place] in the last 14 days. congestion, cough unrelated to allergies. Ebola Screen: Patient denies travel to an Ebola-affected area in the 21 days before illness onset. Initial Sepsis Screen: Does the patient meet any 2 criteria? No. Patient's initial sepsis screen is negative. Does the patient have a suspected source of infection? No. Patient's initial sepsis screen is negative. Risk Assessment: Do you want to hurt yourself or someone else? Patient reports no desire to harm self or others. Onset of symptoms was March 12, 2025. 08:47 Method Of Arrival: Ambulatory ll1 08:47 Acuity: OLEKSANDR 4 ll1 Triage Assessment: 08:49 General: Appears uncomfortable, Behavior is calm, cooperative, appropriate for age, ll1 Reports fatigue for body aches. Pain: Denies pain. EENT: Reports nasal congestion. Neuro: Reports headache. Respiratory: Reports cough that is. Historical: - Allergies: 08:47 No Known Allergies; ll1 - Home Meds: 08:47 None [Active]; ll1 - PMHx: 08:47 None; ll1 - PSHx: 08:47 None; ll1 - Immunization history:: Adult Immunizations up to date. - Infectious Disease History:: Denies. - Social history:: Smoking status: Reported history of juuling and/or vaping. Screenin:[facility] ED Fall Risk Assessment (Adult) History of falling in the last 3 months, ll1 including since admission No falls in past 3 months (0 pts) Confusion or Disorientation No (0 pts) Intoxicated or Sedated No (0 pts) Impaired Gait No (0 pts) Mobility Assist Device Used No (0 pt) Altered Elimination No (0 pt) Score/Fall Risk Level 0 - 2 = Low Risk Maintained a safe environment, Hourly rounding (assess needs \T\ fall precautionary measures) done. Abuse screen: Denies threats or abuse. Nutritional screening: No deficits noted. Tuberculosis screening: No symptoms or risk factors identified. Assessment: 09:44 Reassessment: No changes from previously documented assessment. Patient and/or family ll1 updated on plan of care and expected duration. Pain level reassessed. Patient is alert, oriented x 3, equal unlabored respirations, skin warm/dry/pink. Vital Signs: 08:47 BP 138 / 78; Pulse 86; Resp 17; Temp 99.1; Pulse Ox 100% on R/A; Weight 129.27 kg; ll1 Height 6 ft. 3 in. ; Pain 0/10; 09:44 BP 131 / 70; Pulse 60; Resp 17; Pulse Ox 100% ; Pain 0/10; ll1 08:47 Body Mass Index 35.62 (129.27 kg, 190.5 cm) ll1 08:47 Pain Scale: Adult ll1 09:44 Pain Scale: Adult ll1 ED Course: 08:22 Patient arrived in ED. im 08:24 Darrel Lopez DO is Attending Physician. ms3 08:44 Isidro Garcia RN is Primary Nurse. ll1 08:46 SARS RAPID Sent. ll1 08:47 Arm band placed on Patient placed in an exam room, on a stretcher. ll1 08:48 Patient has correct armband on for positive identification. Provided Education on: ER ll1 procedures and process. 08:49 Triage completed. ll1 08:51 No provider procedures requiring assistance completed. Patient did not have IV access ll1 during this emergency room visit. 09:35 Philippe Garrido DO is Referral Physician. ms3 Administered Medications: No medications were administered Medication: 08:50 VIS not applicable for this client. ll1 Outcome: 09:35 Discharge ordered by . ms3 09:44 Patient left the ED. ll1 09:44 Discharged to home ambulatory, ll1 09:44 Condition: stable 09:44 Discharge instructions given to patient, Instructed on discharge instructions, follow up and referral plans. Demonstrated understanding of instructions, follow-up care, Signatures: Isidro Garcia RN RN ll1 Darrel Lopez DO DO ms3 Suzanne Tijerina im
[2025-03-15 09:49] VITALS: BP 138/78; TEMP 99.1; O2SAT 100
== END 2025-03-15 09:44 | disposition home or self-care (01) ==
LOC: ER 08:20
DX: R09.81 Nasal congestion (principal); R03.0 Elevated blood-pressure reading, without diagnosis of hypertension; Z11.52 Encounter for screening for COVID-19
CPT/HCPCS: 36415; 87426; 99283